=== PATIENT | female | born 1960 | race Caucasian/White ===

== ENCOUNTER 2016-06-14 10:40 | Inpatient (IN) | payer MEDICARE ==
[2016-06-17] MEDS ORDERED: LEVOTHYROXINE125 MCG PO (06:38)
[2016-06-17] MEDS ORDERED: ZYLOPRIM-DPS100 MG PO (06:38)
[2016-06-17] MEDS ORDERED: ULTRAM DPS50 MG PO (06:38)
[2016-06-17] MEDS ORDERED: COUMADIN DPS3 MG PO ×2 (06:39→06:40)
[2016-06-17] MEDS ORDERED: SENOKOT S1 TAB PO (06:40)
[2016-06-17] MEDS ORDERED: MIRALAX PACKET17 GM PO (06:40)
[2016-06-17] MEDS ORDERED: TYLENOL DPS325 MG PO (06:40)
[2016-06-17] MEDS ORDERED: OXY IR DPS5 MG PO (06:41)
== END 2016-06-16 11:55 | disposition home or self-care (01) | DRG 467 ==
DX: T84.032A Mechanical loosening of internal right knee prosthetic joint, initial encounter (principal); D62 Acute posthemorrhagic anemia; Z68.41 Body mass index [BMI] 40.0-44.9, adult; E03.9 Hypothyroidism, unspecified; E66.9 Obesity, unspecified; M10.9 Gout, unspecified; Z86.718 Personal history of other venous thrombosis and embolism; Z86.711 Personal history of pulmonary embolism; Z96.643 Presence of artificial hip joint, bilateral; Z79.01 Long term (current) use of anticoagulants